=== PATIENT | female | born 2000 | race Caucasian/White ===

== ENCOUNTER 2021-05-20 22:24 | Emergency (ER) | payer OTHER ==
[~2021-05-20 22:24] MED LIST: COLACE 100MG C100 MG PO; IBUPROFEN600 MG PO; LORTAB 5-325 M1 EACH PO
== END 2021-05-21 02:56 | disposition home or self-care (01) ==
LOC: ER1 22:24
DX: R53.1 Weakness (principal); Z20.822 Contact with and (suspected) exposure to COVID-19
CPT/HCPCS: 99283; U0002